=== PATIENT | female | born 1970 | race Caucasian/White ===

== ENCOUNTER 2016-08-18 10:56 | Emergency (ER) | payer OTHER ==
[~2016-08-18] VITALS: Ht 170.2 cm; Wt 75.0 kg
[~2016-08-18 10:56] MED LIST: CYCL7.5T33 PO; NAPR550 PO
[2016-08-18 10:57] VITALS: BP 155/83; PULSE 87; RESP 17; TEMP 98.2; O2SAT 98
[2016-08-18] MEDS ORDERED: SODIUM CHLOR 0.9% 1000 ML INJ 1,000 ML IV SCH (11:15)
[2016-08-18] MEDS ORDERED: ONDANSETRON HCL 4 MG/2 ML VIAL IVP ONE (11:15)
[2016-08-18] MEDS ORDERED: SODIUM CHLORIDE 0.9% FLUSH 10 ML FLUSH IV FLUSH PRN (11:15)
--- NOTE | 2016-08-18 11:18 | PD ---
HPI Chief Complaint: GI Complaint Time Seen by Provider: 11:18 Travel History International Travel<30 days: No Contact w/Intl Traveler<30days: No Traveled to known affect area: No History of Present Illness HPI 45-year-old female with no significant medical history presents to emergency department for evaluation of nausea and vomiting 2 days. Patient has not had any diarrhea. She has had no fever or chills. She reports no abdominal pain. 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 Denies any chance of . Patient denies any cardiac history. No chest tightness. No difficulty breathing. No other recent illnesses, fever, or chills. PFSH Past Medical History Medical History: Denies Significant Hx Social History Alcohol Use: No Tobacco Use: No Substance Use: No Allergies-Medications (Allergen,Severity, Reaction): Coded Allergies: No Known Allergies (Unverified , 07/09/16) Reported Meds & Prescriptions Reported Meds & Active Scripts Active Phenergan (Promethazine HCl) 25 Mg Tab 25 Mg PO Q6H PRN Flexeril (Cyclobenzaprine HCl) 7.5 Mg Tab 7.5 Mg PO TID Review of Systems Except as stated in HPI: all other systems reviewed are Neg Physical Exam Narrative GENERAL: Well-nourished female patient, lying in bed, in no acute distress SKIN: Focused skin assessment warm/dry. HEAD: Atraumatic. Normocephalic. EYES: Pupils equal and round. No scleral icterus. No injection or drainage. ENT: No nasal bleeding or discharge. Mucous membranes pink and moist. NECK: Trachea midline. No JVD. CARDIOVASCULAR: Regular rate and rhythm. No murmur appreciated. RESPIRATORY: No accessory muscle use. Clear to auscultation. Breath sounds equal bilaterally. GASTROINTESTINAL: Abdomen soft, non-tender, nondistended. Hepatic and splenic margins not palpable. MUSCULOSKELETAL: No obvious deformities. No clubbing. No cyanosis. No edema. NEUROLOGICAL: Awake and alert. No obvious cranial nerve deficits. Motor grossly within normal limits. Normal speech. PSYCHIATRIC: Appropriate mood and affect; insight and judgment normal. Data Data Last Documented VS Vital Signs Date Time Temp Pulse Resp B/P Pulse Ox O2 Delivery O2 Flow Rate FiO2 08/18/16 11:37 18 08/18/16 11:36 97 Nasal Cannula 2 08/18/16 11:20 99.0 4/1/17 10:57 87 155/83 Orders Complete Blood Count With Diff (08/18/16 11:15) Comprehensive Metabolic Panel (08/18/16 11:15) Lipase (08/18/16 11:15) Prothrombin Time / Inr (Pt) (08/18/16 11:15) Act Partial Throm Time (Ptt) (08/18/16 11:15) Urinalysis - C+S If Indicated (08/18/16 11:15) Iv Access Insert/Monitor (08/18/16 11:15) Ecg Monitoring (08/18/16 11:15) Oximetry (08/18/16 11:15) Ondansetron Inj (Zofran Inj) (08/18/16 11:15) Sodium Chlor 0.9% 1000 Ml Inj (Ns 1000 M (08/18/16 11:15) Sodium Chloride 0.9% Flush (Ns Flush) (08/18/16 11:15) Prochlorperazine Inj (Compazine Inj) (08/18/16 12:15) Diphenhydramine Inj (Benadryl Inj) (08/18/16 12:15) Sodium Chlor 0.9% 1000 Ml Inj (Ns 1000 M (08/18/16 13:00) Metoclopramide Inj (Reglan Inj) (08/18/16 13:15) Al-Mag Hy-Si 40-40-4 Mg/Ml Liq (Mag-Al P (08/18/16 13:15) Lidocaine 2% Viscous (Xylocaine 2% Visco (08/18/16 13:15) Labs Laboratory Tests Test 08/18/16 11:29 White Blood Count 10.0 TH/MM3 Red Blood Count 4.70 MIL/MM3 Hemoglobin 13.2 GM/DL Hematocrit 40.1 % Mean Corpuscular Volume 85.5 FL Mean Corpuscular Hemoglobin 28.1 PG Mean Corpuscular Hemoglobin 32.9 % Concent Red Cell Distribution Width 13.7 % Platelet Count 209 TH/MM3 Mean Platelet Volume 8.7 FL Neutrophils (%) (Auto) 84.5 % Lymphocytes (%) (Auto) 8.7 % Monocytes (%) (Auto) 6.5 % Eosinophils (%) (Auto) 0.0 % Basophils (%) (Auto) 0.3 % Neutrophils # (Auto) 8.4 TH/MM3 Lymphocytes # (Auto) 0.9 TH/MM3 Monocytes # (Auto) 0.6 TH/MM3 Eosinophils # (Auto) 0.0 TH/MM3 Basophils # (Auto) 0.0 TH/MM3 CBC Comment DIFF FINAL Differential Comment Prothrombin Time 11.4 SEC Prothromb Time International 1.0 RATIO Ratio Activated Partial 28.5 SEC Thromboplast Time Urine Color YELLOW Urine Turbidity CLOUDY Urine pH 5.0 Urine Specific [place] 1.032 Urine Protein 30 mg/dL Urine Glucose (UA) NEG mg/dL Urine Ketones 10 mg/dL Urine Occult Blood NEG Urine Nitrite NEG Urine Bilirubin NEG Urine Urobilinogen LESS THAN 2.0 MG/DL Urine Leukocyte Esterase SMALL Urine WBC 1 /hpf Urine Squamous Epithelial 3 /hpf Cells Urine Amorphous Sediment MOD Urine Bacteria FEW /hpf Urine Mucus FEW /lpf Microscopic Urinalysis Comment CULT NOT INDICATED Sodium Level 142 MEQ/L Potassium Level 3.3 MEQ/L Chloride Level 107 MEQ/L Carbon Dioxide Level 25.3 MEQ/L Anion Gap 10 MEQ/L Blood Urea Nitrogen 13 MG/DL Creatinine 1.10 MG/DL Estimat Glomerular Filtration 54 ML/MIN Rate Random Glucose 111 MG/DL Calcium Level 8.5 MG/DL Total Bilirubin 0.7 MG/DL Aspartate Amino Transf 22 U/L (AST/SGOT) Alanine Aminotransferase 15 U/L (ALT/SGPT) Alkaline Phosphatase 70 U/L Total Protein 7.3 GM/DL Albumin 3.7 GM/DL Lipase 91 U/L [facility] Medical Decision Making Medical Screen Exam Complete: Yes Emergency Medical Condition: Yes Medical Record Reviewed: Yes Differential Diagnosis Gastritis versus gastroenteritis versus influenza versus stricture paresis versus pancreatitis versus cholecystitis Narrative Course 45 year-old female presents to emergency department for evaluation nausea and vomiting for 2 days. Patient is unable to keep anything down. She has low- grade temperature here in emergency department. Abdominal exam is benign. Patient was given Zofran and IV fluids. She states that she continues to have some nausea. She is given Compazine and Benadryl. Patient has not vomited since being in the emergency department. CBC is without acute concern. CMP is with mild hypokalemia of 3.3. Urinalysis is cloudy with 30 proteinuria, 10 ketonuria, small leukocyte esterase, few mucus, few bacteria. Culture is not indicated. I discussed the patient denies pain physician. Patient will be discharged home with anti-medic prescription. She is encouraged to rest and advance diet as tolerated. She agrees to return immediately with any acute worsening of symptoms. Diagnosis Primary Impression: Gastritis Qualified Code: K29.00 - Acute gastritis without hemorrhage, unspecified gastritis type Additional Impression: Nausea & vomiting Qualified Code: R11.2 - Non-intractable vomiting with nausea, unspecified vomiting type Referrals: Primary Care Physician Patient Instructions: Diet for Stomach Ulcers and Gastritis (ED), Gastritis (ED ), General Instructions Departure Forms: Tests/Procedures, Work Release Enter return to work date: Aug 21, 2016 Additional Instructions: Avoid acidic and abrasive foods Clear liquid diet. Advance as tolerated Maintain adequate oral hydration Return immediately with any acute worsening of symptoms Med/Other Pt SpecificInfo: Prescription(s) given Scripts Promethazine (Phenergan)25 Mg Tab25 Mg PO Q6H PRN (Nausea/Vomiting) #15 TAB Ref 0 Prov:Sharyn Amador 08/18/16 Disposition: 01 DISCHARGE HOME Condition: Stable Sharyn Amador Aug 18, 2016 11:18
[2016-08-18 11:20] VITALS: TEMP 99
[2016-08-18 11:36] VITALS: O2SAT 97
[2016-08-18 11:50] LABS: AUTOMATED NEUTROPHIL # 8.4 TH/MM3 (1.8-7.7); BASOPHIL % 0.3 % (0.0-2.0); HEMATOCRIT 40.1 % (35.0-46.0); HEMO FLAGS DIFF FINAL; LYMPH % 8.7 % (9.0-44.0); LYMPHOCYTE # 0.9 TH/MM3 (1.0-4.8); MEAN CELL VOLUME 85.5 FL (80.0-100.0); MEAN CORPUSCULAR HEMOGLOBIN 28.1 PG (27.0-34.0); MEAN CORPUSCULAR HGB CONC 32.9 % (32.0-36.0); MONO % 6.5 % (0.0-8.0); NEUT % 84.5 % (16.0-70.0); PLATELET COUNT 209 TH/MM3 (150-450); RED CELL DISTRIBUTION WIDTH 13.7 % (11.6-17.2)
[2016-08-18 11:55] LABS: BACTERIA, URINE FEW /hpf; BLOOD, URINE NEG (NEG); COMMENT (UR) CULT NOT INDICATED; CULTURE IF INDICATED CULT NOT INDICATED; GLUCOSE,URINE NEG (NEG); KETONE, URINE 10 mg/dL (NEG); MUCUS URINE FEW /lpf (OCC); NITRITE,URINE NEG (NEG); SQUAMOUS EPITHELIAL CELL URINE 3 /hpf (0-5); URINE COLOR YELLOW (YELLW/STRAW)
[2016-08-18 12:00] LABS: APTT (PATIENT) 28.5 SEC (24.3-30.1); PROTHROMBIN TIME - PATIENT 11.4 SEC (9.8-11.6)
[2016-08-18] MEDS ORDERED: diphenhydrAMINE HCL 50 MG/ML VIAL IV PUSH ONE (12:15)
[2016-08-18] MEDS ORDERED: PROCHLORPERAZINE INJ 10 MG/2 ML VIAL IV PUSH ONE (12:15)
[2016-08-18 12:34] LABS: ALT (GPT) 15 U/L (10-53); ANION GAP 10 MEQ/L (5-15); AST (GOT) 22 U/L (15-37); BICARBONATE 25.3 MEQ/L (21.0-32.0); BLOOD UREA NITROGEN 13 MG/DL (7-18); CHLORIDE 107 MEQ/L (98-107); GLOMERULAR FILTRATION RATE 54 ML/MIN (>89); POTASSIUM 3.3 MEQ/L (3.5-5.1); SODIUM (NA) 142 MEQ/L (136-145)
[2016-08-18 12:36] LABS: ALKALINE PHOSPHATASE 70 U/L (45-117); TOTAL BILIRUBIN ADULT 0.7 MG/DL (0.2-1.0)
[2016-08-18] MEDS ORDERED: SODIUM CHLOR 0.9% 1000 ML INJ 1,000 ML IV ONE (13:00)
[2016-08-18] MEDS ORDERED: PROM25TA5 PO (13:00)
[2016-08-18] MEDS ORDERED: ALUMINUM/MAGNESIUM/SIMETH 30 ML CUP PO ONE (13:15)
[2016-08-18] MEDS ORDERED: METOCLOPRAMIDE HCL 10 MG/2 ML VIAL IV PUSH ONE (13:15)
[2016-08-18] MEDS ORDERED: LIDOCAINE VISCOUS 2% SOLN 15 ML UDC PO ONE (13:15)
[2016-09-03] MEDS ORDERED: PROM25TA5 PO (11:04)
[2016-09-03] MEDS ORDERED: HYDR-3533 PO (11:04)
== END 2016-08-18 14:53 | disposition home or self-care (01) ==
LOC: NEPA 10:56
DX: K29.00 Acute gastritis without bleeding (principal); R11.2 Nausea with vomiting, unspecified; E87.6 Hypokalemia
CPT/HCPCS: 80053; 81001; 83690; 85025; 85610; 85730; 96361; 96374; 96375; 99284; J0780; J1200; J2405; J2765; J7030

== ENCOUNTER 2016-08-28 17:57 | Emergency (ER) | payer OTHER ==
[~2016-08-28] VITALS: Ht 170.2 cm; Wt 72.5 kg
[~2016-08-28 17:57] MED LIST changes: -NAPR550 PO; +PROM25TA5 PO
[2016-08-28 17:58] VITALS: BP 184/104; PULSE 96; RESP 20; TEMP 98.4; O2SAT 99
--- NOTE | 2016-08-28 18:04 | PD ---
Physical Exam Time Seen by Provider: 18:01 Narrative 45 year old with complaints of n/v for past 4 hours. She reports she was here august 18 similar symptoms. Left sided intermittent abdominal pain, worse when vomiting. Vital signs noted. Seen at triage desk. Awaiting bed placement. Data Data Last Documented VS Vital Signs Date Time Temp Pulse Resp B/P Pulse Ox O2 Delivery O2 Flow Rate FiO2 08/28/16 17:58 98.4 96 20 184/104 99 Room Air [facility] Medical Record Reviewed: Yes Supervised Visit with MELVIN: Yes Alfie Casey Aug 28, 2016 18:04
[2016-08-28] MEDS ORDERED: SODIUM CHLOR 0.9% 1000 ML INJ 1,000 ML IV SCH (18:28)
[2016-08-28] MEDS ORDERED: SODIUM CHLORIDE 0.9% FLUSH 10 ML FLUSH IV FLUSH PRN (18:30)
[2016-08-28] MEDS ORDERED: ONDANSETRON HCL 4 MG/2 ML VIAL IVP ONE (18:30)
--- NOTE | 2016-08-28 18:36 | PD ---
HPI Chief Complaint: GI Complaint Time Seen by Provider: 18:32 Travel History International Travel<30 days: No Contact w/Intl Traveler<30days: No Traveled to known affect area: No History of Present Illness HPI 45-year-old female presents to the emergency department for evaluation of left lower abdominal pain, nausea, vomiting. Patient was seen on August 18, 2016 for nausea and vomiting. She states that her symptoms resolved on August 20, 2016. However, they restarted today. She does state that the left lower quadrant abdominal pain started approximately 2 days ago. She states she has been unable to keep any food or fluids down today. She denies any diarrhea or constipation. No chest pain or shortness of breath. No fevers or chills. She reports no chronic medical problems and takes no prescribed medications. Patient reports history of tubal ligation and states she is not currently sexually active. Therefore, she denies any chance of . PFSH Past Medical History ?: Not LMP: 08/2016 Social History Alcohol Use: No Tobacco Use: No Substance Use: No Allergies-Medications (Allergen,Severity, Reaction): Coded Allergies: No Known Allergies (Unverified , 08/28/16) Reported Meds & Prescriptions Reported Meds & Active Scripts Active Phenergan (Promethazine HCl) 25 Mg Tab 25 Mg PO Q6H PRN Flexeril (Cyclobenzaprine HCl) 7.5 Mg Tab 7.5 Mg PO TID Review of Systems Except as stated in HPI: all other systems reviewed are Neg Physical Exam Narrative GENERAL: Well-nourished, well-developed female patient, ambulatory. Afebrile. SKIN: Focused skin assessment warm/dry. HEAD: Normocephalic. Atraumatic. EYES: No scleral icterus. No injection or drainage. NECK: Supple, trachea midline. No JVD or lymphadenopathy. CARDIOVASCULAR: Regular rate and rhythm without murmurs, gallops, or rubs. RESPIRATORY: Breath sounds equal bilaterally. No accessory muscle use. Lungs sounds are clear to auscultation. GASTROINTESTINAL: Abdomen soft, non-tender, nondistended. MUSCULOSKELETAL: No cyanosis, or edema. BACK: Nontender without obvious deformity. No CVA tenderness. Data Data Last Documented VS Vital Signs Date Time Temp Pulse Resp B/P Pulse Ox O2 Delivery O2 Flow Rate FiO2 08/28/16 19:41 106 16 184/92 99 Room Air 4/11/17 17:58 98.4 Orders Complete Blood Count With Diff (08/28/16 18:28) Comprehensive Metabolic Panel (08/28/16 18:28) Lipase (08/28/16 18:28) Urinalysis - C+S If Indicated (08/28/16 18:28) Ct Abd/Pel W Iv Contrast(Rout) (08/28/16 18:28) Iv Access Insert/Monitor (08/28/16 18:28) Ecg Monitoring (08/28/16 18:28) Oximetry (08/28/16 18:28) Ondansetron Inj (Zofran Inj) (08/28/16 18:30) Sodium Chlor 0.9% 1000 Ml Inj (Ns 1000 M (08/28/16 18:28) Sodium Chloride 0.9% Flush (Ns Flush) (08/28/16 18:30) Electrocardiogram (08/28/16 18:28) Morphine Inj (Morphine Inj) (08/28/16 19:45) Iohexol 350 Inj (Omnipaque 350 Inj) (08/28/16 20:12) Ketorolac Inj (Toradol Inj) (08/28/16 20:45) Labs Laboratory Tests Test 08/28/16 08/28/16 18:49 20:32 White Blood Count 10.4 TH/MM3 Red Blood Count 4.47 MIL/MM3 Hemoglobin 12.9 GM/DL Hematocrit 37.5 % Mean Corpuscular Volume 83.9 FL Mean Corpuscular Hemoglobin 28.8 PG Mean Corpuscular Hemoglobin 34.3 % Concent Red Cell Distribution Width 13.3 % Platelet Count 275 TH/MM3 Mean Platelet Volume 8.2 FL Neutrophils (%) (Auto) 86.7 % Lymphocytes (%) (Auto) 7.8 % Monocytes (%) (Auto) 4.4 % Eosinophils (%) (Auto) 0.6 % Basophils (%) (Auto) 0.5 % Neutrophils # (Auto) 9.0 TH/MM3 Lymphocytes # (Auto) 0.8 TH/MM3 Monocytes # (Auto) 0.5 TH/MM3 Eosinophils # (Auto) 0.1 TH/MM3 Basophils # (Auto) 0.1 TH/MM3 CBC Comment DIFF FINAL Differential Comment Sodium Level 141 MEQ/L Potassium Level 3.5 MEQ/L Chloride Level 103 MEQ/L Carbon Dioxide Level 31.1 MEQ/L Anion Gap 7 MEQ/L Blood Urea Nitrogen 10 MG/DL Creatinine 0.93 MG/DL Estimat Glomerular Filtration 65 ML/MIN Rate Random Glucose 114 MG/DL Calcium Level 9.0 MG/DL Total Bilirubin 0.3 MG/DL Aspartate Amino Transf 11 U/L (AST/SGOT) Alanine Aminotransferase 13 U/L (ALT/SGPT) Alkaline Phosphatase 77 U/L Total Protein 7.4 GM/DL Albumin 3.5 GM/DL Lipase 100 U/L Urine Color LIGHT-YELLOW Urine Turbidity HAZY Urine pH 8.0 Urine Specific [place] 1.018 Urine Protein NEG mg/dL Urine Glucose (UA) NEG mg/dL Urine Ketones 10 mg/dL Urine Occult Blood NEG Urine Nitrite NEG Urine Bilirubin NEG Urine Urobilinogen LESS THAN 2.0 MG/DL Urine Leukocyte Esterase NEG Urine RBC LESS THAN 1 /hpf Urine WBC 3 /hpf Urine Squamous Epithelial <1 /hpf Cells Urine Amorphous Sediment RARE Urine Bacteria RARE /hpf Microscopic Urinalysis Comment CULT NOT INDICATED MDM Medical Decision Making Medical Screen Exam Complete: Yes Emergency Medical Condition: Yes Medical Record Reviewed: Yes Interpretation(s) CT abdomen/pelvis - CONCLUSION: 1. Small left ureteral calculus measuring approximately 4-5 mm in size with mild to moderate hydronephrosis. 2. Left renal calculi. Differential Diagnosis UTI versus gastritis versus diverticulitis versus UTI versus viral syndrome versus gastroenteritis Narrative Course 45-year-old female presents to the emergency department for evaluation of left lower abdominal pain, nausea, vomiting. EKG, CBC, CMP, lipase, UA are ordered and pending. CT the abdomen/pelvis with IV contrast is ordered and pending. Patient is given normal saline 1 L IV bolus and Zofran 4 mg IV. EKG shows sinus rhythm, heart rate 92, no acute ST changes. CBC shows no acute abnormality. CMP shows no acute abnormality. Lipase is 100. UA is negative for infection. Ct of the abdomen/pelvis shows small left ureteral calculus measuring approximately 4-5 mm in size with mild to moderate hydronephrosis. 2. Left renal calculi. Patient will be discharged prescription for Lortab for pain and Zofran for nausea. She is encouraged to follow with urology. She is return for any acute worsening of symptoms. Patient verbalizes agreement and understanding. Diagnosis Primary Impression: Ureterolithiasis Referrals: Darren Pierce DO call for appointment Urologist Patient Instructions: General Instructions, Ureteral Stones (ED) Departure Forms: Tests/Procedures, Work Release Enter return to work date: Aug 31, 2016 Additional Instructions: Take Lortab as instructed as needed for pain. Caution this can make you drowsy so do not drive after taking. Take Zofran as directed as needed for nausea/vomiting. Follow-up with urology. Dr. Pierce is the urologist on-call today. Follow-up with your primary care physician. Return to the emergency department for any acute worsening of symptoms. Med/Other Pt SpecificInfo: Prescription(s) given Scripts Ondansetron Odt 4 Mg Tab4 Mg SL Q6HR PRN (Nausea/Vomiting) #16 TAB Ref 0 Prov:Xochitl Casiano 08/28/16 Hydrocodone-Acetaminophen (Lortab)5-325 Mg Tab1-2 Tab PO Q6H PRN (PAIN) #16 TAB Ref 0 Prov:Bony Wilson MD 08/28/16 Disposition: 01 DISCHARGE HOME Condition: Stable Xochitl Casiano Aug 28, 2016 18:36
[2016-08-28 18:49] VITALS: O2SAT 97
[2016-08-28 18:59] LABS: BASOPHIL # 0.1 TH/MM3 (0-0.2); BASOPHIL % 0.5 % (0.0-2.0); EOSINOPHIL # 0.1 TH/MM3 (0-0.4); EOSINOPHIL % 0.6 % (0.0-4.0); HEMATOCRIT 37.5 % (35.0-46.0); HEMO FLAGS DIFF FINAL; LYMPH % 7.8 % (9.0-44.0); LYMPHOCYTE # 0.8 TH/MM3 (1.0-4.8); MEAN CELL VOLUME 83.9 FL (80.0-100.0); MEAN CORPUSCULAR HEMOGLOBIN 28.8 PG (27.0-34.0); MEAN CORPUSCULAR HGB CONC 34.3 % (32.0-36.0); MONO % 4.4 % (0.0-8.0); NEUT % 86.7 % (16.0-70.0); PLATELET COUNT 275 TH/MM3 (150-450); RED BLOOD COUNT 4.47 MIL/MM3 (4.00-5.30); RED CELL DISTRIBUTION WIDTH 13.3 % (11.6-17.2); WHITE BLOOD COUNT 10.4 TH/MM3 (4.0-11.0)
[2016-08-28 19:25] LABS: ANION GAP 7 MEQ/L (5-15); AST (GOT) 11 U/L (15-37); BICARBONATE 31.1 MEQ/L (21.0-32.0); BLOOD UREA NITROGEN 10 MG/DL (7-18); CHLORIDE 103 MEQ/L (98-107); GLOMERULAR FILTRATION RATE 65 ML/MIN (>89); POTASSIUM 3.5 MEQ/L (3.5-5.1); SODIUM (NA) 141 MEQ/L (136-145)
[2016-08-28 19:29] LABS: ALKALINE PHOSPHATASE 77 U/L (45-117); ALT (GPT) 13 U/L (10-53); TOTAL BILIRUBIN ADULT 0.3 MG/DL (0.2-1.0)
[2016-08-28 19:41] VITALS: BP 184/92; PULSE 106; RESP 16; O2SAT 99
[2016-08-28] MEDS ORDERED: MORPHINE SULFATE 4 MG/ML INJ IV PUSH ONE (19:45)
[2016-08-28] MEDS ORDERED: IOHEXOL 350 MG/ML 10 ML VIAL (for RAD DIAG) IV ONE (20:12)
--- NOTE | 2016-08-28 20:29 | RADRPT ---
EXAM DATE/TIME: 08/28/2016 19:48 [facility] COMPARISON: No previous studies available for comparison. INDICATIONS : Nausea, vomiting and left upper quadrant pain. IV CONTRAST: 91 cc Omnipaque 350 (iohexol) IV ORAL CONTRAST: No oral contrast ingested. RADIATION DOSE: 9.96 CTDIvol (mGy) MEDICAL HISTORY : None SURGICAL HISTORY : None. ENCOUNTER: Initial ACUITY: 2 weeks PAIN SCALE: 10/10 LOCATION: Left Abdomen TECHNIQUE: Volumetric scanning of the abdomen and pelvis was performed. Using automated exposure control and ad justment of the mA and/or kV according to patient size, radiation dose was kept as low as reasonably achievable to obtain optimal diagnostic quality images. FINDINGS: LOWER LUNGS: The visualized lower lungs are clear. LIVER: Homogeneous density without lesion. There is no dilation of the biliary tree. No calcified gallston es. SPLEEN: Normal size without lesion. PANCREAS: Within normal limits. KIDNEYS: The right kidney is unremarkable in appearance. The left kidney demonstrates a mildly delayed nephrog mili and is enlarged with a 5 mm calculus in the lower pole. There is a proximal left ureteral calculu s with mild to moderate hydronephrosis. This measures 4-5 mm in size. There is mild inflammatory henriquez ge surrounding the left kidney. ADRENAL GLANDS: Within normal limits. VASCULAR: There is no aortic aneurysm. BOWEL/MESENTERY: The stomach, small bowel, and colon demonstrate no acute abnormality. There is no free intraperitone al air or fluid. ABDOMINAL WALL: Within normal limits. RETROPERITONEUM: There is no lymphadenopathy. BLADDER: No wall thickening or mass. REPRODUCTIVE: Within normal limits. INGUINAL: There is no lymphadenopathy or hernia. MUSCULOSKELETAL: Within normal limits for patient age. CONCLUSION: 1. Small left ureteral calculus measuring approximately 4-5 mm in size with mild to moderate hydronep hrosis. 2. Left renal calculi. Johann Liz MD on August 28, 2016 at 20:24 Board Certified Radiologist. This report was verified electronically.
[2016-08-28 20:43] LABS: BACTERIA, URINE RARE /hpf; BLOOD, URINE NEG (NEG); COMMENT (UR) CULT NOT INDICATED; CULTURE IF INDICATED CULT NOT INDICATED; GLUCOSE,URINE NEG (NEG); KETONE, URINE 10 mg/dL (NEG); NITRITE,URINE NEG (NEG); SQUAMOUS EPITHELIAL CELL URINE <1 /hpf (0-5); URINE COLOR LIGHT-YELLOW (YELLW/STRAW)
[2016-08-28] MEDS ORDERED: KETOROLAC TROMETHAMINE 30 MG/ML (IVP) VIAL IV PUSH ONE (20:45)
[2016-08-28] MEDS ORDERED: HYDR-3533 PO (20:45)
[2016-08-28] MEDS ORDERED: ONDA4TAB7 SL (20:46)
--- NOTE | 2016-08-29 10:42 | EKG ---
Date Performed: 08/28/2016 Time Performed: 18:43:36 PTAGE: 45 years EKG: Sinus rhythm LOW QRS VOLTAGE IN PRECORDIAL LEADS BORDERLINE ECG NO PREVIOUS TRACING DOCTOR: Tramaine Sun Interpretating Date/Time 08/29/2016 10:41:37
[2016-09-03] MEDS ORDERED: HYDR-3533 PO (11:04)
[2016-09-03] MEDS ORDERED: PROM25TA5 PO (11:04)
== END 2016-08-28 21:01 | disposition home or self-care (01) ==
LOC: NEPD 17:57
DX: N20.1 Calculus of ureter (principal); N20.0 Calculus of kidney; R11.2 Nausea with vomiting, unspecified; R94.31 Abnormal electrocardiogram [ECG] [EKG]
CPT/HCPCS: 74177; 80053; 81001; 83690; 85025; 93005; 96361; 96374; 96375; 99284; J1885; J2270; J2405; J7030; Q9967